=== PATIENT | male | born 1950 | race Caucasian/White ===

== ENCOUNTER 2018-01-22 19:07 | Emergency (ER) | payer OTHER ==
[~2018-01-22] VITALS: Ht 170.2 cm; Wt 76.7 kg
[~2018-01-22 19:07] MED LIST: COZA100T PO; HYDR-2768 PO; MECL25CH PO; PROM25SU8 PO; RELP40TA PO; ZOVI200C24
[2018-01-22 19:16] VITALS: BP 166/88; PULSE 80; RESP 18; TEMP 97.6; O2SAT 97
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
[2018-01-22] MEDS ORDERED: AMLO5TAB2 PO (19:57)
[2018-01-22] MEDS ORDERED: MULT1TAB46 PO (19:57)
[2018-01-22] MEDS ORDERED: CLAR10CA3 PO (19:57)
[2018-01-22] MEDS ORDERED: OMEP20TA93 PO (20:55)
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
[2018-01-22] MEDS ORDERED: DICL75TA PO (20:58)
[2018-01-22] MEDS ORDERED: ROBA500T PO (20:58)
== END 2018-01-22 21:16 | disposition home or self-care (01) ==
LOC: PHEFT 19:07
DX: S13.4XXA Sprain of ligaments of cervical spine, initial encounter (principal); V79.49XA Driver of bus injured in collision with other motor vehicles in traffic accident, initial encounter; Y92.410 Unspecified street and highway as the place of occurrence of the external cause; Y99.0 Civilian activity done for income or pay; I10 Essential (primary) hypertension; Z88.2 Allergy status to sulfonamides
CPT/HCPCS: 72125; 99283